=== PATIENT | female | born 1960 | race Caucasian/White ===

== ENCOUNTER → 2018-06-22 07:21 | Outpatient (CLI) | payer OTHER ==
[2010-05-13 06:12] VITALS: BMI 53.0
[~2018-06-22 07:21] MED LIST: CELEXA40 MG PO; HYDROCODONE-APA1 TAB PO
[2018-07-07 08:32] VITALS: BMI 48.8
== END | disposition home or self-care (01) ==
LOC: D.NM 07:21
DX: R11.2 Nausea with vomiting, unspecified (principal)

== ENCOUNTER 2018-06-26 19:00 | Outpatient (CLI) | payer OTHER ==
[2010-05-13 06:12] VITALS: BMI 53.0
[2018-07-06] MEDS ORDERED: CELEXA40 MG PO (16:56)
[2018-07-07 08:32] VITALS: BMI 48.8
== END 2018-06-26 23:59 | disposition home or self-care (01) ==
LOC: D.MAMMO 19:00
DX: Z12.31 Encounter for screening mammogram for malignant neoplasm of breast (principal)

== ENCOUNTER 2018-07-07 06:34 | Day surgery (SDC) | payer OTHER ==
[~2018-07-07] VITALS: Ht 157.5 cm; Wt 120.7 kg
--- NOTE | ~2018-07-07 | OP ---
PATIENT NAME: ELSA JACKSON MEDICAL RECORD: [id number] :64 LOCATION:D.[facility] ADMISSION DATE: SURGEON: JHON JUAREZ MD DATE OF OPERATION: 07/07/2018 PREOPERATIVE DIAGNOSES: 1. Biliary dyskinesia. 2. Cardiomegaly. 3. Anxiety. 4. Morbid obesity. 5. Depression. 6. Hyperlipidemia. POSTOPERATIVE DIAGNOSES: 1. Biliary dyskinesia. 2. Cardiomegaly. 3. Anxiety. 4. Morbid obesity. 5. Depression. 6. Hyperlipidemia. PROCEDURE: Laparoscopic cholecystectomy. SURGEON: Jhon Juarez MD REPORT OF PROCEDURE: The patient's abdomen was prepped and draped in sterile fashion. A cutdown was made on the superior aspect of the umbilicus, 0 Vicryls were placed in the fascia bilaterally and the fascia was incised with a 15-blade. I then bluntly entered the peritoneal cavity and placed a 12-mm Aspen port. Under direct visualization, a 5 mm trocar was placed in the epigastrium and 2 more 5-mm trocars were placed in the right subcostal region. The gallbladder was grasped and elevated. The cystic artery and cystic duct were dissected free and these were clipped proximally and distally and ligated in standard fashion. The gallbladder was taken off the liver bed using electrocautery and placed in the right upper quadrant. Any bleeding from the liver bed was then treated with electrocautery. At this point, the ports and insufflation were then removed and the gallbladder was taken out through the umbilicus. The umbilical fascia was closed with interrupted 0 Vicryls times 3. The wounds were then irrigated out with normal saline and infused with 10 mL of 0.25% Marcaine with epinephrine. Skin incisions were all closed with subcutaneous 5-0 Monocryl and dressed appropriately. COMPLICATIONS: None. CONDITION: Stable. ANESTHESIA: General endotracheal and local. BLOOD LOSS: Minimal. TRANSINT:[id number] Voice Confirmation ID: [id number] DOCUMENT ID: [id number] OPERATIVE REPORT [id number] ELSA JACKSON JHON JUAREZ MD at 0807 CC: KEITH ISAAC [id number] DICTATION DATE: 07/07/18 1030 RADIOTELEGRAPH OPERATOR: 07/07/18 1118 [facility] 07/07/18 [facility] [address] [place] [address]
[~2018-07-07 06:34] MED LIST changes: -HYDROCODONE-APA1 TAB PO
[2018-07-07 08:32] VITALS: BP 119/74; Ht 157.5 cm; Wt 120.7 kg
[2018-07-07] MEDS ORDERED: HYDROCODONE-APA1 TAB PO (10:27)
== END 2018-07-07 13:00 | disposition home or self-care (01) ==
LOC: D.OPS 06:34 → D.PAN 09:15 → D.OPS 09:30
DX: K82.4 Cholesterolosis of gallbladder (principal); I51.7 Cardiomegaly; F41.9 Anxiety disorder, unspecified; E66.01 Morbid (severe) obesity due to excess calories; F32.9 Major depressive disorder, single episode, unspecified; E78.5 Hyperlipidemia, unspecified; Z01.812 Encounter for preprocedural laboratory examination

== ENCOUNTER → 2018-07-18 21:44 | Outpatient (CLI) | payer OTHER ==
[2018-07-07 07:06] LABS: HEMOGLOBIN 13.9 g/dL (12-16); MCH 29.9 pg (26.0-34.0); MCHC 33.9 g/dL (31.0-37.0); MCV 88.2 fL (80.0-100.0); MEAN PLATELET VOLUME 9.8 fL (7.4-10.4); RBC 4.65 10x6/uL (4.00-5.40); RDW 12.7 % (11.5-14.5); WBC 6.4 10x3/uL (4.8-10.8)
[2018-07-07 08:32] VITALS: BMI 48.8
[~2018-07-18 21:44] MED LIST changes: +HYDROCODONE-APA1 TAB PO
== END | disposition home or self-care (01) ==
LOC: D.MAMMO 11:30
PROVIDERS: Anesthesiology
DX: Z12.31 Encounter for screening mammogram for malignant neoplasm of breast (principal)

== ENCOUNTER → 2019-08-07 13:13 | Outpatient (CLI) | payer BC ==
[2018-07-07 08:32] VITALS: BMI 48.8
--- NOTE | 2019-08-09 09:14 | EC ---
PATIENT:ELSA JACKSON DATE OF SERVICE: 08/07/19 SEX: F MEDICAL RECORD: [id number] DATE OF : 64 [facility] AGE OF PATIENT: 59 ADMISSION DATE: 08/07/19 REFERRING PHYSICIAN: INTERPRETING PHYSICIAN: ABDIAS JOHNSON MD ECHOCARDIOGRAM REPORT ECHO CHARGES 4 ECHO COMPLETE Date: 08/07/19 CLINICAL DIAGNOSIS: ORTHOSTATIC HTN ECHOCARDIOGRAPHIC MEASUREMENTS (adult normal given) AC root (d.<3.7cm) 3.7 cm LV Septum d (<1.2 cm> 1.3 cm Valve Excursion 2.0 cm LV Septum (systole) 1.5 cm Left Atria (s.<4.0cm> 4.2 cm LVPW d(<1.2cm) 1.7 cm RV (d.<2.3cm) 3.2 cm LVPW (sytole) 12.1 cm LV diastole(<5.6CM) 5.4 cm MV E-F(>70mm/sec) cm LV systole 3.3 cm LVOT Diameter 1.9 cm MV exc.(>10mm) 1.3 cm Est.ejection fraction (50-75%) % DOPPLER: LVIT cm/sec A 60.0 cm/sec E 92.0 cm/sec LA cm/sec RVSP 23 mmHg LVOT 122 cm/sec AOP1/2T m/s Asc. Ao 133 cm/sec RVOT 69 cm/sec RA cm/sec PA 98 cm/sec AV Gradient Peak 7.10 mmHg AV Mean 3.78 mmHg AV Area 2.8 cm MV Gradient Peak 4.39 mmHg MV Mean 1.62 mmHg MV Area cm COMMENTS: Compounding Pharmacy Technician: Mary Kay BELL Dough Catcher: 1 Dr. Johnson TAPE# PACS Pericardial Effusion N DATE OF SERVICE: FINDINGS: 1. Left ventricular chamber size is within normal limits. Left ventricular systolic function is normal. Overall ejection fraction estimated at 65%. 2. Left atrium is enlarged at 4.2 cm. Right atrium and right ventricular chamber sizes are as well mildly dilated. 3. Valvular structures have normal structure and motion. 4. Doppler interrogation reveals mild mitral regurgitation, mild tricuspid regurgitation, no other valvular insufficiency or stenosis. Pulmonary systolic ECHOCARDIOGRAM REPORT [id number] ELSA JACKSON pressure is estimated at 23 mmHg. 5. No evidence of pericardial effusion or left ventricular thrombus. TRANSINT:[id number] Voice Confirmation ID: [id number] DOCUMENT ID: [id number] ABDIAS JOHNSON MD at 0914 CC: [id number] DICTATION DATE: 08/07/19 1546 WOODS SUPERINTENDENT: 08/08/19 0021 DEP CLI 08/07/19 [place] [id number] [place] [id number]
== END | disposition home or self-care (01) ==
LOC: D.HCCECHO 13:13
PROVIDERS: ATTEND Internal Medicine Interventional Cardiology
DX: I95.1 Orthostatic hypotension (principal)